=== PATIENT | male | born 1975 | race Caucasian/White ===

== ENCOUNTER 2023-08-17 22:38 | Emergency (ER) | payer SELFPAY ==
[2023-08-17] MEDS: Acetaminophen 500 MG Tab PO ONE (23:23)
[2023-08-17] MEDS: Doxycycline 100 MG Cap PO ONE (23:23)
[2023-08-17] MEDS: Ibuprofen 600 MG Tab PO ONE (23:23)
== END 2023-08-18 00:08 | disposition home or self-care (01) ==
LOC: MW.ED 22:38
DX: M79.672 Pain in left foot (principal); L97.529 Non-pressure chronic ulcer of other part of left foot with unspecified severity; Z79.899 Other long term (current) drug therapy; Z75.8 Other problems related to medical facilities and other health care; W01.0XXA Fall on same level from slipping, tripping and stumbling without subsequent striking against object, initial encounter
CPT/HCPCS: 73620; 99283; A9270